=== PATIENT | male | born 1955 | race Two or more races ===

== ENCOUNTER → 2019-12-08 | Outpatient (CLI) | payer BC ==
[~2019-12-08] MED LIST: LORAZEPAM INJ 2 MG/ML VIAL ONE
--- NOTE | 2019-12-08 17:44 | Diagnostic Imaging Report ---
Examination: MRI BRAIN WO CONTRAST History: Dizziness. Comparison studies: None Technique: Sagittal T2; axial DWI, FLAIR, GRE or SWI, T1, Coronal FLAIR. Intravenous contrast: None Findings: Scalp: No abnormal signal. No masses. Bone marrow: Normal in signal intensity. Brain volume: Adequate for age. No volume loss. Ventricles: No hydrocephalus. Extra-axial spaces: No abnormalities. 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 No masses, hemorrhage, or acute vascular insults. Suprasellar and sellar region: No abnormalities. Craniocervical junction: No abnormalities. The foramen magnum is patent. No Chiari malformations. Vessels: Normal flow-voids in the arteries and sinuses. Additional findings:None. IMPRESSION: No acute abnormalities. 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 Signed by: Dr. Maria Guadalupe Steiner M.D. on 12/08/2019 5:41 PM
--- NOTE | 2019-12-08 17:47 | Diagnostic Imaging Report ---
Examination: MRA HEAD WO CONTRAST History: ^TRANSIENT ISCHEMIC ATTACK Comparison studies: None Technique: 3-D [id number] MR angiogram of the intracranial circulation was obtained. MIP images of the arteries were isolated into anterior and posterior intracranial circulations, 180 degree projections. Sagittal and coronal MPR images, and axial source images are available for evaluation. Findings: Internal carotid arteries: Patent. Anterior cerebral arteries: Patent A1 and A2. Middle cerebral arteries: Patent M1 and M2. Vertebrobasilar circulation: Patent. Posterior cerebral arteries: Patent P1 and P2. Anatomical variants: Anterior communicating arteries: Patent. Posterior communicating arteries: Patent. Vertebral arteries: Codominant IMPRESSION: No intracranial arterial stenosis or occlusion or vascular malformation. Signed by: Dr. Maria Guadalupe Steiner M.D. on 12/08/2019 5:44 PM
== END ==
LOC: MRI 12-07 11:40
DX: G45.9 Transient cerebral ischemic attack, unspecified (principal)
CPT/HCPCS: 70544; 70551; J2060

== ENCOUNTER → 2019-12-15 | Day surgery (SDC) | payer BC ==
[~2019-12-15] MED LIST changes: +ASPIRIN81 MG PO; +DEXILANT30 MG PO; +FENTANYL CITRATE/PF 100MCG/2 ML INJ ONE; +LIDOCAINE HCL 2% LOCAL INJ 5 ML SDV VIAL INJ ONE; +LISINOPRIL10 MG PO; -LORAZEPAM INJ 2 MG/ML VIAL ONE; +MIDAZOLAM HCL 2 MG/2 ML VIAL ONE; +PLAVIX75 MG PO; +PROPOFOL IV EMULSION 10 MG/ML 20 ML VIAL ONE; +ZYRTEC10 M3 PO
[2019-12-15 08:55] LABS: BASOPHILS % 0.5 % (0.0-1.0); EOSINOPHILS # (AUTO) 0.2 (0.0-0.4); EOSINOPHILS % 2.9 % (0.0-6.0); HEMATOCRIT 44.4 % (38.2-49.6); HEMOGLOBIN 15.2 g/dL (14.0-18.0); LYMPHOCYTES # (AUTO) 1.5 (1.0-3.2); LYMPHOCYTES % 24.8 % (18.0-39.1); MEAN CORPUSCULAR HEMOGLOBIN 30.3 pg (28-32); MEAN CORPUSCULAR HGB CONC 34.2 g/dL (31-35); MEAN CORPUSCULAR VOLUME 88.4 fL (81-99); MONOCYTES # (AUTO) 0.6 (0.2-0.8); MONOCYTES % 10.2 % (4.4-11.3); NEUTROPHILS # (AUTO) 3.7 (2.1-6.9); NEUTROPHILS % 61.4 % (38.7-80.0); PLATELET COUNT 175 x10e3/uL (140-360); RED BLOOD COUNT 5.02 x10e6/uL (4.3-5.7); RED CELL DISTRIBUTION WIDTH 12.7 % (11.7-14.4)
[2019-12-15 11:10] VITALS: BP 150/88
== END | disposition home or self-care (01) ==
LOC: OR 07:46
PROVIDERS: ATTEND Internal Medicine Gastroenterology
DX: Z12.11 Encounter for screening for malignant neoplasm of colon (principal); K29.50 Unspecified chronic gastritis without bleeding; K29.80 Duodenitis without bleeding; K21.9 Gastro-esophageal reflux disease without esophagitis; K31.89 Other diseases of stomach and duodenum; K44.9 Diaphragmatic hernia without obstruction or gangrene; K22.8 Other specified diseases of esophagus; K64.8 Other hemorrhoids; K64.4 Residual hemorrhoidal skin tags; I25.10 Atherosclerotic heart disease of native coronary artery without angina pectoris; I10 Essential (primary) hypertension; R42 Dizziness and giddiness; Z01.810 Encounter for preprocedural cardiovascular examination; Z01.812 Encounter for preprocedural laboratory examination; Z11.59 Encounter for screening for other viral diseases; Z79.02 Long term (current) use of antithrombotics/antiplatelets; Z79.82 Long term (current) use of aspirin; Z68.30 Body mass index [BMI] 30.0-30.9, adult; Z95.5 Presence of coronary angioplasty implant and graft; Z82.49 Family history of ischemic heart disease and other diseases of the circulatory system
CPT/HCPCS: 36415; 43239; 45378; 85025; 93005; J2001; J2250; J2704; J3010